=== PATIENT | male | born 1965 | race Two or more races ===

== ENCOUNTER 2017-10-21 11:17 | Emergency (ER) | payer OTHER ==
[~2017-10-21] VITALS: Ht 162.6 cm; Wt 81.6 kg
[2017-10-21 11:29] VITALS: BP 125/84
[2017-10-21] MEDS ORDERED: Hydrogen Peroxide 473ml Bottle TOPIC ONE ×2 (11:38→11:45)
[2017-10-21] MEDS ORDERED: Bacitracin Oint UD TOPIC ONE ×2 (11:39→11:45)
[2017-10-21] MEDS ORDERED: Augmentin 875mg Tab ORAL ONE (11:45)
[2017-10-21] MEDS ORDERED: AUGMENTIN 875-1 EAC1 ORAL (12:06)
[2017-10-21 12:09] VITALS: BP 125/84
--- NOTE | 2017-10-21 12:27 | Emergency Room Report ---
History of Present Illness General Chief Complaint: Animal Bite Source: Patient Present Illness HPI Patient presents with complaints of a dog wound on the right lower extremity Patient reports that approximately 10 this morning the injury occurred Denies any fevers or chills denies any chest pain or short of breath Denies any back or flank pain discomfort to the area is 3 out of 10 Allergies: Coded Allergies: No Known Allergies (Unverified , 10/21/17) Patient History Past Medical History: see triage record Pertinent Family History: none Reviewed Nursing Documentation: PMH: Agreed; PSxH: Agreed Nursing Documentation-PMH Hx Diabetes: Yes Review of Systems All Other Systems: negative except mentioned in HPI Physical Exam Vital Signs Date Time Temp Pulse Resp B/P (MAP) Pulse Ox O2 Delivery O2 Flow Rate FiO2 10/21/17 11:22 97.5 58 20 125/84 98 Room Air 97.5 Sp02 EP Interpretation: reviewed, normal General Appearance: well appearing, no apparent distress Head: normocephalic, atraumatic Eyes: bilateral eye PERRL, bilateral eye EOMI ENT: normal pharynx, no angioedema Neck: supple Respiratory: lungs clear Cardiovascular #1: regular rate, rhythm Gastrointestinal: non tender, soft Musculoskeletal: normal inspection Neurologic: alert, oriented x3 Skin: other - Small abrasion appearance to the right lower leg just below the right knee, appearance of break through the dermal region, questionable small puncture, mild ecchymosis at the site, no fluctuance Lymphatic: no adenopathy Medical Decision Making Diagnostic Impression: Primary Impression: dog bite ER Course Given the appearance and the presentation the wound appears minor Area is cleansed and irrigated, however given the questionable puncture area patient was placed on antibiotics and is able to follow up closely with outpatient follow-up Last Vital Signs Date Time Temp Pulse Resp B/P (MAP) Pulse Ox O2 Delivery O2 Flow Rate FiO2 10/21/17 12:09 97.5 20 125/84 98 Room Air 97.5 10/21/17 11:22 58 Status: improved Disposition: HOME, SELF-CARE Condition: Stable Scripts Amoxicillin/Potassium Clav 875-125* (AUGMENTIN 875-125 TABLET*) 1 Each Tablet 1 TAB ORAL TWICE A DAY, #10 TAB Prov: Alton Calderon DO 10/21/17 Referrals: NOT CHOSEN IPA/MD,REFERRING (PCP) Patient Instructions: Animal Bite, [id number] Additional Instructions: Patient is provided with the discharge instructions notified to follow up with primary doctor in the next 2-3 days otherwise return to the er with any worsening symptoms. Please note that this report is being documented using [employer] technology. This can lead to erroneous entry secondary to incorrect interpretation by the dictating instrument. Alton Calderon DO Oct 21, 2017 12:27
== END 2017-10-21 12:20 | disposition home or self-care (01) ==
LOC: EMR 12:10
DX: S80.811A Abrasion, right lower leg, initial encounter (principal); W54.0XXA Bitten by dog, initial encounter; Y93.89 Activity, other specified; Y92.9 Unspecified place or not applicable; E11.9 Type 2 diabetes mellitus without complications
CPT/HCPCS: 99283